=== PATIENT | female | born 1970 | race Caucasian/White ===

== ENCOUNTER 2023-07-14 13:00 | Day surgery (SDC) | payer MEDICAID, SELFPAY ==
--- NOTE | 2023-07-04 11:44 | PCM.HP.BLA ---
History and Physical Date of Admission: 07/14/23 HPI: The patient is a 53 year old female presenting for pre-operative visit. She is scheduled for hysteroscopy D&C with polyp resection, for PMB and endometrial polyp on 07/14/23. Procedure discussed along with risks, benefits and complications. Other alternatives discussed for management. Consent form signed? Yes. ? ? PAST MEDICAL HISTORY PAST MEDICAL HISTORY Diagnosis Date ? Anemia ? ? Anxiety and depression ? ? Asthma ? ? Diabetes (HCC) ? ? pre diabetes ? IBS (irritable bowel syndrome) ? ? ? PAST SURGICAL HISTORY PAST SURGICAL HISTORY Procedure Laterality Date ? COLONOSCOPY SCREENING ? ? ? TUBAL LIGATION HX ? CURRENT MEDICATIONS Current Outpatient Medications Medication Sig Dispense Refill ? sertraline (ZOLOFT) 100 mg tablet Take 1 tablet by mouth once daily. 90 tablet 0 ? montelukast (SINGULAIR) 10 mg tablet TAKE 1 TABLET BY MOUTH EVERYDAY AT BEDTIME 30 tablet 5 ? fluticasone (FLONASE) 50 mcg/actuation nasal spray SPRAY 2 SPRAYS INTO EACH NOSTRIL EVERY DAY 16 mL 11 ? mometasone-formoterol (DULERA) 200-5 mcg/actuation inhaler Inhale 1 Puff as instructed twice daily. 1 Each 5 ? albuterol HFA (PROAIR HFA) 90 mcg/actuation inhaler Inhale 2 Puffs as instructed every 4 hours as needed for wheezing/shortness of breath (tightness in chest, coughing). 18 g 11 ? diphenoxylate-atropine (LOMOTIL) 2.5-0.025 mg per tablet Take 1 tablet by mouth three times daily as needed for up to 90 days. 90 tablet 2 ? ergocalciferol 50,000 unit capsule (VITAMIN D2, DRISDOL) Take 1 capsule by mouth one time a week. 12 capsule 3 ? hydrocortisone 2.5 % cream Apply 1 application to affected area twice daily. 30 g 1 ? topiramate (TOPAMAX) 100 mg tablet TAKE 1 TABLET BY MOUTH EVERY EVENING WITH DINNER 90 tablet 3 ? diphenhydrAMINE (BENADRYL) 25 mg tablet Take 1-2 tablets by mouth every 6 hours as needed for itching/rash. 20 tablet 0 ? dicyclomine (BENTYL) 20 mg tablet Take 1 tablet by mouth three times daily. 90 tablet 0 ? No current facility-administered medications for this visit. ? ? ALLERGIES: Compazine [Prochlorperazine] ? PERSONAL HISTORY: SOCIAL HISTORY Social History ? Tobacco Use ? Smoking status: Former ? Smokeless tobacco: Never Vaping Use ? Vaping Use: Never used Substance Use Topics ? Alcohol use: Not Currently ? Drug use: Not Currently ? FAMILY HISTORY: FAMILY HISTORY FAMILY HISTORY Problem Relation Age of Onset ? No Known Problems Father ? ? Breast Cancer Sister ? ? masectomy - bilateral ? Breast Cancer Sister ? ? masectomy - unilateral ? Breast Cancer Sister ? ? lumpectomy + lymph nodes ? Ovarian cancer No Family History ? ? Uterine Cancer No Family History ? ? ? REVIEW OF SYMPTOMS: GENERAL: denies fevers or chills ENDOCRINOLOGY: has not been on steroids Cardiology : denies palpitations or chest pain Respiratory: denies SOB or cough Hematology: denies history of prolonged bleeding or easy bruising or VTE Allergy: Denies history of personal or family history of allergy to anesthesia ? PHYSICAL EXAMINATION: ? VITALS: Last menstrual period 12/07/2019. ? GENERAL: The patient is well nourished, well hydrated in no acute distress. , The patient is oriented to time, place, and person. NECK: Supple. No lynphadenopathy, normal thyroid, no thyromegaly. LUNGS: Clear to auscultation bilaterally. no wheezes, rhonchi or rales HEART: Regular rate and rhythm, Normal heart sounds, and No murmurs or gallops ? IMPRESSION: PMB, endometrial polyp, endometrial thickness 11 mm ? PLAN: The risks/benefits/alternatives and personal involved for the planned hysteroscopy D&C w/ polyp resection were reviewed with the patient. Her questions were answered to her satisfaction and she desires to proceed. Consent was signed. I reviewed with her postop instructions and expectations. ? ? I have reviewed and updated past medical and surgical history, medications and allergies Assessment & Plan Assessment/Plan (1) PMB (postmenopausal bleeding): (2) Endometrial polyp:
[2023-07-14] VITALS (7 sets, daily range): BP systolic 104–137; BP diastolic 62–81; PULSE 70–84; RESP 16; TEMP 36.2–37; O2SAT 94–99; BMI 33.8
--- NOTE | 2023-07-14 | EMB_PTH ---
PATIENT: JOHN MOREL LOC: [facility] [place] U#:[id number] AGE/SX: 53/F ROOM: RE07/14/[address]: Dr. Reina Elizabeth MD : 1970 BED: DIS: 07/14/2023 SPEC #: [id number] RECD: 07/14/23 16:26 STATUS: ROSANA MCMILLAN #: [id number] LEV: 07/14/23 00:[address]: Reina Elizabeth DEPT: SURGICAL PATHOLOGY RECD BY: Ra Cramer Tissues: Endometrium, NOS Procedures: Surgery Specimen Level IV HEADER OPERATION: Hysteroscopy, D & C Symphion PRE-OP DIAGNOSIS: Postmenopausal bleeding, endometrial polyp TISSUE SUBMITTED: Endometrial curettings MICROSCOPIC DIAGNOSIS Endometrium, curettings: Simple cystic hyperplasia without atypia. Fragments of benign myometrium with changes suspicious for adenomyosis. AM:roxanna 07/18/2023 MICROSCOPIC DESCRIPTION Slides are reviewed. GROSS DESCRIPTION Received in fixative is one container labeled with the patient's name and designated endometrial curettings. The specimen consists of multiple irregular fragments of ruiz, indurated tissue that in aggregate measure 3.0 x 2.5 x 0.3 cm. The specimen is totally submitted in one cassette. / SJ:roxanna 07/17/2023 TC:5 CPT: 70535
[2023-07-14] MEDS: Lactated Ringers 1,000 ML 15 ML IV (13:55)
[2023-07-14] MEDS: Acetaminophen 500 MG Tablet 1000 MG PO (13:55)
[2023-07-14] MEDS: Ketorolac 30 MG/ML Syringe IV (13:56)
[2023-07-14 14:05] LABS: Hematocrit 40.3 % (37-47); Hemoglobin 13.4 g/dL (12.0-15.0); Mean Corp Hgb Conc 33.3 g/dL (32-36); Mean Corpuscular Hgb 29.8 pg (27.0-32.0); Mean Corpuscular Volume 89.6 fL (81-99); Mean Platelet Vol. 9.9 fl (6.2-12.0); Platelet Count 255 K/mm3 (150-450); RBC Distribution Width SD 42.6 fl (35.1-43.9); White Blood Count 6.6 K/mm3 (4.4-11.0)
--- NOTE | 2023-07-14 14:32 | DCINST_ITS ---
Discharge Instructions Diet Discharge Diet: No restrictions Activity May resume sexual activity in: 2 weeks Lifting Restrictions: none Dressing / Incision Call your doctor if your incision/area has: Sudden Increased Bleeding and Foul Smelling Discharge Call your doctor if you observe: Fever of 101 or Higher and Using more than 1 pad per hour (for 2 hrs in a row) Follow Up Care Please Follow Up With: Reina Elizabeth MD When: WE will contact you next week with pathology results. Call [phone] to make an appointment or with any concerns. Test Results: Test results from this visit will be discussed in further detail at your follow- up appointment, if applicable. Discharge Plan Admission Primary Reason for Your Visit: Hysteroscopy D&C with polyp resection Attending Provider: Reina Elizabeth Primary Care Provider: JOSÉ ANTONIO CANCINO Discharge Orders/Prescriptions Prescriptions: New ibuprofen [ibuprofen] 600 mg tablet 600 mg PO Q6H PRN (Reason: Pain) 10 Days Qty: 20 0RF Continued sertraline 100 mg tablet 100 mg PO DAILY Patient Comments: TAKE 1 TABLET BY MOUTH EVERY DAY topiramate 100 mg tablet 100 mg PO DAILY Patient Comments: TAKE 1 TABLET BY MOUTH EVERY EVENING WITH DINNER. albuterol sulfate 90 mcg/actuation HFA aerosol inhaler 2 inh INHALATION Q4H PRN (Reason: wheezing) Patient Comments: PLEASE SEE ATTACHED FOR DETAILED DIRECTIONS fluticasone propionate [Flovent HFA] 110 mcg/actuation HFA aerosol inhaler 1 puff INHALATION Q12H Patient Comments: INHALE 1 PUFF INSTRUCTED TWICE DAILY. SHAKE WELL BEFORE USE. RINSE MOUTH AFTER USE Dulera 200-5 mcg/actuation HFA aerosol inhaler 2 puff INHALATION DAILY ergocalciferol (vitamin D2) 1,250 mcg (50,000 unit) capsule 50,000 unit PO MO Patient Comments: TAKE 1 CAPSULE BY MOUTH ONE TIME A WEEK. Disposition Disposition (needs filled in before D/C Order can be placed): Home, Self Care
--- NOTE | 2023-07-14 14:32 | OP.PCM_ITS ---
Problems Associated Problem List Diagnoses (1) Endometrial polyp: (2) PMB (postmenopausal bleeding): Report of Operation Date of Procedure: 07/14/23 Pre-Operative Diagnosis: PMB, endometrial polyp Post-Operative Diagnosis: PMB Surgery/Procedure Performed:: Hysteroscopy D&C w Description of Surgical Findings:: thin endometrium, mild thickening posterior wall, no discrete polyp or fibroid, normal cervix, vagina and endocervical canal Surgeon: Reina Elizabeth high school computer science teacher: Paulo Sharpe MS3 Type of Anesthesia: MAC/Supplemental/Local Anesthesiologist: Charlee Sung Special Medications: none Specimen's removed: endometrial curretings Drains: none Estimated Blood Loss (mL): 10 Fluids Replaced: 1300 Description of Procedure: The patient was taken to the OR where she was prepped and draped in dorsal lithotomy position. The weighted speculum was placed in the vagina and the anterior lip of the cervix was grasped with a single-tooth tenaculum. A paracervical block was administered with 1% lidocaine with 1-100,000 epinephrine solution. The cervix was dilated serially with Hegar dilators. The Symphion hysteroscope was placed into the uterine cavity and the above findings were noted. Bilateral tubal ostia were identified. The Symphion resection device was inserted and a visual D&C was completed The instruments were removed from the vagina. The specimen was handed off and sent to pathology. All sponge and needle counts were correct. Vaginal sweep was performed by me. The patient was awakened and taken to the recovery room in stable condition. Calculated hysteroscopic fluid deficit was 600 cc of normal saline Grafts/Implants Used: none Procedure Start Time: 14:36 Procedure Stop Time: 14:47 Complications none Admit VTE Documentation VTE Present on Admission: No VTE Mechan Device Prophylaxis: SCD's VTE Pharm Prophylaxis ordered?: No Reason prophylaxis not ordered:: Procedure Not Indicated
[2023-07-14] MEDS: Lidocaine 1% /Epi 1:100 (20ml) 20 ML Vial (14:38)
== END 2023-07-14 16:00 | disposition home or self-care (01) ==
LOC: SDC 13:09 → AC 13:11
PROVIDERS: Referring Provider Obstetrics & Gynecology; Visit Provider Obstetrics & Gynecology
PROC: 0UB98ZZ Excision of Uterus, Via Natural or Artificial Opening Endoscopic (ICD-10-PCS; CPT 58558; principal; 2023-07-14 13:40)
DX: N85.01 Benign endometrial hyperplasia (principal); N95.0 Postmenopausal bleeding; F41.9 Anxiety disorder, unspecified; F32.A Depression, unspecified; Z87.891 Personal history of nicotine dependence; Z79.899 Other long term (current) drug therapy
CPT/HCPCS: 58558; 00952; 85027; 88305; J7120; J2405